=== PATIENT | female | born 1990 | race African-American/Black ===

== ENCOUNTER 2017-05-11 11:04 | Emergency (ER) | payer MEDICAID ==
[~2017-05-11] VITALS: Ht 160 cm; Wt 64.0 kg
[~2017-05-11 11:04] MED LIST: DOXY100C2; MEDR400V
[2017-05-11] MEDS ORDERED: SODIUM CHLORIDE 0.9% 1,000 ML IV ONE (14:45)
[2017-05-11] MEDS ORDERED: KETOROLAC 30MG/ML VIAL IV ONE (14:45)
[2017-05-11] MEDS ORDERED: DIPHENHYDRAMINE 50MG/ML VIAL IV ONE (14:45)
[2017-05-11] MEDS ORDERED: METOCLOPRAMIDE HCL 10MG/2ML VIAL IV ONE (14:45)
[2017-05-11 15:46] LABS: CHLORIDE 107 mEq/L (98-107)
[2017-05-11 15:51] LABS: CARBON DIOXIDE 27 mEq/L (21-32); EOSINOPHILS % 6.8 % (0.0-5.0); HEMATOCRIT. 31.4 % (36.0-48.0); HEMOGLOBIN. 10.3 g/dL (12.0-16.0); LYMPHOCYTES % 35.8 % (20.0-50.0); MEAN CORPUSCULAR HEMOGLOBIN 29.2 pg (28.0-32.0); MEAN PLATELET VOLUME 8.7 fl (7.4-10.4); MONOCYTES % 12.9 % (2.0-8.0); NEUTROPHILS % 43.5 % (40.0-76.0); PLATELET 310 x1000/uL (130-400); RED BLOOD CELL COUNT 3.53 mill/uL (4.2-5.4)
[2017-05-11 16:14] LABS: CLARITY URINE CLOUDY (CLEAR); COLOR URINE YELLOW (YELLOW); GLUCOSE URINE NEGATIVE (NEGATIVE); KETONES URINE TRACE (NEGATIVE); LEUKOCYTE ESTERASE URINE 1+ (NEGATIVE); NITRITE URINE NEGATIVE (NEGATIVE); OCCULT BLOOD URINE NEGATIVE (NEGATIVE); PROTEIN URINE TRACE (NEGATIVE); SPECIFIC GRAVITY URINE 1.026 (1.005-1.030)
[2017-05-11] MEDS ORDERED: ACETAMINOPHEN 500MG TABLET PO ONE (19:00)
[2017-05-11 19:52] VITALS: BP 106/75
== END 2017-05-11 19:57 | disposition home or self-care (01) ==
LOC: ER 14:49
DX: B34.9 Viral infection, unspecified (principal); N39.0 Urinary tract infection, site not specified; R51 Headache; R07.9 Chest pain, unspecified; F12.10 Cannabis abuse, uncomplicated
CPT/HCPCS: 36415; 71010; 80048; 81001; 81025; 85025; 93005; 96361; 96374; 96375; 99285; J1200; J1885; J2765; J7030; Z7610

== ENCOUNTER 2017-08-28 13:42 | Emergency (ER) | payer MEDICAID ==
[~2017-08-28] VITALS: Ht 160 cm; Wt 69.0 kg
[2017-08-28] MEDS ORDERED: KETOROLAC 30MG/ML VIAL IV STA (18:16)
[2017-08-28] MEDS ORDERED: SODIUM CHLORIDE 0.9% 1,000 ML IV ONE (18:16)
[2017-08-28] MEDS ORDERED: ONDANSETRON HCL 4MG/2ML VIAL IV STA (18:16)
[2017-08-28 18:32] LABS: BASOPHILS % 0.9 % (0.0-2.0); EOSINOPHILS % 0.7 % (0.0-5.0); HEMOGLOBIN. 10.2 g/dL (12.0-16.0); MEAN CORPUSCULAR HEMOGLOBIN 28.3 pg (28.0-32.0); MEAN PLATELET VOLUME 8.9 fl (7.4-10.4); MONOCYTES % 9.3 % (2.0-8.0); NEUTROPHILS % 38.1 % (40.0-76.0); PLATELET 326 x1000/uL (130-400); RED CELL DISTRIBUTION WIDTH 15.3 % (11.6-14.6)
[2017-08-28 18:40] LABS: CHLORIDE 106 mEq/L (98-107)
[2017-08-28 19:48] LABS: CARBON DIOXIDE 25 mEq/L (21-32)
[2017-08-28 20:05] VITALS: BP 123/70
[2017-08-28 20:16] LABS: CLARITY URINE CLEAR (CLEAR); COLOR URINE YELLOW (YELLOW); KETONES URINE TRACE (NEGATIVE); LEUKOCYTE ESTERASE URINE NEGATIVE (NEGATIVE); NITRITE URINE NEGATIVE (NEGATIVE); OCCULT BLOOD URINE NEGATIVE (NEGATIVE); PH URINE 5.5 (4.5-8.0); PROTEIN URINE 2+ (NEGATIVE); SPECIFIC GRAVITY URINE 1.031 (1.005-1.030); UROBILINOGEN URINE 0.2 E.U./dL (0.2-1.0)
== END 2017-08-28 21:50 | disposition home or self-care (01) ==
LOC: ER 14:43
DX: B34.9 Viral infection, unspecified (principal); F12.10 Cannabis abuse, uncomplicated
CPT/HCPCS: 36415; 71045; 80053; 81001; 81025; 85025; 87804; 96361; 96374; 96375; 99285; J1885; J2405; J7030; Z7610

== ENCOUNTER 2017-08-29 23:18 | Emergency (ER) | payer MEDICAID, OTHER ==
[~2017-08-29] VITALS: Ht 160 cm; Wt 70.0 kg
[2017-08-30] MEDS ORDERED: KETOROLAC 30MG/ML VIAL IV STA (06:24)
[2017-08-30] MEDS ORDERED: ONDANSETRON HCL 4MG/2ML VIAL IV STA (06:24)
[2017-08-30] MEDS ORDERED: SODIUM CHLORIDE 0.9% 1,000 ML IV ONE (06:24)
[2017-08-30] MEDS ORDERED: CEFTRIAXONE SODIUM 250 MG/VIAL IM ONE (06:30)
[2017-08-30] MEDS ORDERED: AZITHROMYCIN 500 MG TABLET PO ONE (06:30)
[2017-08-30 06:41] LABS: BASOPHILS % 0.6 % (0.0-2.0); EOSINOPHILS % 1.2 % (0.0-5.0); HEMATOCRIT. 27.6 % (36.0-48.0); HEMOGLOBIN. 8.9 g/dL (12.0-16.0); LYMPHOCYTES % 63.2 % (20.0-50.0); MEAN CORPUSCULAR HEMOGLOBIN 27.6 pg (28.0-32.0); MEAN CORPUSCULAR VOLUME 85.8 fL (81.0-99.0); MEAN PLATELET VOLUME 8.3 fl (7.4-10.4); MONOCYTES % 9.3 % (2.0-8.0); NEUTROPHILS % 25.7 % (40.0-76.0); PLATELET 297 x1000/uL (130-400); RED BLOOD CELL COUNT 3.22 mill/uL (4.2-5.4)
[2017-08-30 06:48] LABS: HCG SCREEN NEGATIVE
[2017-08-30 06:52] LABS: CHLORIDE 107 mEq/L (98-107)
[2017-08-30 06:58] LABS: CARBON DIOXIDE 28 mEq/L (21-32)
[2017-08-30 07:06] LABS: CLARITY URINE CLEAR (CLEAR); COLOR URINE YELLOW (YELLOW); KETONES URINE NEGATIVE (NEGATIVE); LEUKOCYTE ESTERASE URINE NEGATIVE (NEGATIVE); NITRITE URINE NEGATIVE (NEGATIVE); OCCULT BLOOD URINE 1+ (NEGATIVE); PH URINE 5.5 (4.5-8.0); PROTEIN URINE TRACE (NEGATIVE); SPECIFIC GRAVITY URINE 1.025 (1.005-1.030)
[2017-08-30 07:52] VITALS: BP 147/63
[2017-09-02 08:12] LABS: CHLAMYDIA TRACHOMATIS NAA Negative (Negative); NEISSERIA GONORRHOEAE NAA Negative (Negative)
== END 2017-08-30 09:34 | disposition home or self-care (01) ==
LOC: ER 23:18
DX: D25.9 Leiomyoma of uterus, unspecified (principal); D64.9 Anemia, unspecified; N73.9 Female pelvic inflammatory disease, unspecified; F12.10 Cannabis abuse, uncomplicated
CPT/HCPCS: 36415; 76830; 76856; 80053; 81001; 83690; 84703; 85025; 87210; 87491; 87591; 93005; 96361; 96372; 96374; 96375; 99285; J0696; J1885; J2405; Z7610; J7030

== ENCOUNTER 2017-10-10 03:18 | Emergency (ER) | payer OTHER ==
[~2017-10-10] VITALS: Ht 160 cm; Wt 71.0 kg
[2017-10-10] MEDS ORDERED: IBUPROFEN 600MG TABLET PO STA (04:53)
[2017-10-10 05:19] LABS: BASOPHILS % 1.1 % (0.0-2.0); EOSINOPHILS % 3.3 % (0.0-5.0); HEMATOCRIT. 26.7 % (36.0-48.0); HEMOGLOBIN. 8.5 g/dL (12.0-16.0); MEAN CORPUSCULAR HEMOGLOBIN 27.1 pg (28.0-32.0); MEAN PLATELET VOLUME 8.2 fl (7.4-10.4); MONOCYTES % 7.3 % (2.0-8.0); NEUTROPHILS % 37.3 % (40.0-76.0); PLATELET 378 x1000/uL (130-400); RED BLOOD CELL COUNT 3.15 mill/uL (4.2-5.4)
[2017-10-10 05:23] LABS: CLARITY URINE TURBID (CLEAR); COLOR URINE YELLOW (YELLOW); KETONES URINE NEGATIVE (NEGATIVE); LEUKOCYTE ESTERASE URINE 3+ (NEGATIVE); NITRITE URINE NEGATIVE (NEGATIVE); OCCULT BLOOD URINE NEGATIVE (NEGATIVE); PROTEIN URINE NEGATIVE (NEGATIVE); SPECIFIC GRAVITY URINE 1.018 (1.005-1.030); UROBILINOGEN URINE 0.2 E.U./dL (0.2-1.0)
[2017-10-10 05:24] LABS: HCG SCREEN NEGATIVE
[2017-10-10 05:26] LABS: CHLORIDE 107 mEq/L (98-107)
[2017-10-10 05:57] LABS: *AMPHETAMINES SCREEN URINE NEGATIVE (NEGATIVE); *BARBITURATES SCREEN URINE NEGATIVE (NEGATIVE); *BENZODIAZEPINES SCREEN URINE NEGATIVE (NEGATIVE); *COCAINE SCREEN URINE NEGATIVE (NEGATIVE); METHADONE URINE SCREEN NEGATIVE (NEGATIVE); OPIATES URINE SCREEN NEGATIVE (NEGATIVE)
[2017-10-10 05:58] LABS: PHENCYCLIDINE URINE SCREEN NEGATIVE (NEGATIVE)
[2017-10-10 06:07] LABS: CANNABINOID URINE SCREEN PRESUMTIVE POSITIVE (NEGATIVE)
[2017-10-10] MEDS ORDERED: KETOROLAC 60MG/2ML VIAL IM ONE (06:45)
[2017-10-10] MEDS ORDERED: CEFTRIAXONE SODIUM 250 MG/VIAL IM ONE (09:45)
[2017-10-10] MEDS ORDERED: LIDOCAINE HCL 1% 20ML VIAL (Pyxis) INJ MC ONE (09:45)
[2017-10-10] MEDS ORDERED: AZITHROMYCIN 500 MG TABLET PO ONE (09:45)
[2017-10-10] MEDS ORDERED: ACETAMINOPHEN 325MG TABLET PO ONE (09:45)
[2017-10-10 11:24] VITALS: BP 117/63
== END 2017-10-10 11:24 | disposition home or self-care (01) ==
LOC: ER 03:44
DX: R10.2 Pelvic and perineal pain (principal); R30.0 Dysuria; N93.8 Other specified abnormal uterine and vaginal bleeding; D25.9 Leiomyoma of uterus, unspecified; F12.10 Cannabis abuse, uncomplicated
CPT/HCPCS: 36415; 76830; 76856; 80053; 80305; 81003; 84703; 85025; 87210; 87491; 87591; 96372; 99285; J0696; J1885; J3490

== ENCOUNTER 2017-10-23 02:02 | Emergency (ER) | payer OTHER ==
[~2017-10-23] VITALS: Ht 160 cm; Wt 70.0 kg
[2017-10-23 05:30] VITALS: BP 122/80
[2017-10-23] MEDS ORDERED: KETOROLAC 60MG/2ML VIAL IM ONE (05:30)
[2017-10-23] MEDS ORDERED: PREDNISONE 20MG TABLET PO ONE (05:30)
== END 2017-10-23 06:30 | disposition home or self-care (01) ==
LOC: ER 02:02
DX: J03.90 Acute tonsillitis, unspecified (principal)
CPT/HCPCS: 96372; 99283; J1885; J7512

== ENCOUNTER 2018-05-17 10:32 | Emergency (ER) | payer MEDICAID ==
[~2018-05-17] VITALS: Ht 160 cm; Wt 68.3 kg
[2018-05-17 11:18] LABS: CLARITY URINE CLEAR (CLEAR); COLOR URINE YELLOW (YELLOW); KETONES URINE NEGATIVE (NEGATIVE); LEUKOCYTE ESTERASE URINE NEGATIVE (NEGATIVE); NITRITE URINE NEGATIVE (NEGATIVE); OCCULT BLOOD URINE NEGATIVE (NEGATIVE); PH URINE 7.5 (4.5-8.0); PROTEIN URINE NEGATIVE (NEGATIVE); SPECIFIC GRAVITY URINE 1.021 (1.005-1.030); UROBILINOGEN URINE 0.2 E.U./dL (0.2-1.0)
[2018-05-17] MEDS ORDERED: KETOROLAC 30MG/ML VIAL IV STA (11:48)
[2018-05-17] MEDS ORDERED: SODIUM CHLORIDE 0.9% 1,000 ML IV ONE (11:48)
[2018-05-17] MEDS ORDERED: DOXYCYCLINE HYCLATE 100 MG/VIAL IV ONE (12:00)
[2018-05-17] MEDS ORDERED: CEFTRIAXONE 1 G PREMIX 50 ML IV ONE (12:00)
[2018-05-17] MEDS ORDERED: DOXYCYCLINE 100MG in DEXTROSE 5% WATER 100ML IV SCH (12:15)
[2018-05-17 13:11] LABS: CHLORIDE 109 mEq/L (98-107)
[2018-05-17 13:24] LABS: BASOPHILS % 0.7 % (0.0-2.0); EOSINOPHILS % 2.8 % (0.0-5.0); HEMATOCRIT. 26.1 % (36.0-48.0); HEMOGLOBIN. 8.2 g/dL (12.0-16.0); LYMPHOCYTES % 42.2 % (20.0-50.0); MEAN CORPUSCULAR HEMOGLOBIN 24.2 pg (28.0-32.0); MEAN CORPUSCULAR VOLUME 77.1 fL (81.0-99.0); MEAN PLATELET VOLUME 8.8 fl (7.4-10.4); MONOCYTES % 7.3 % (2.0-8.0); PLATELET 296 x1000/uL (130-400); RED BLOOD CELL COUNT 3.38 mill/uL (4.2-5.4); RED CELL DISTRIBUTION WIDTH 17.9 % (11.6-14.6)
[2018-05-17 16:15] VITALS: BP 108/68
[2018-05-19 15:10] LABS: CHLAMYDIA TRACHOMATIS NAA Negative (Negative); NEISSERIA GONORRHOEAE NAA Negative (Negative)
== END 2018-05-17 16:52 | disposition home or self-care (01) ==
LOC: ER 10:32
DX: N73.9 Female pelvic inflammatory disease, unspecified (principal); D25.9 Leiomyoma of uterus, unspecified; R19.7 Diarrhea, unspecified; F12.10 Cannabis abuse, uncomplicated
CPT/HCPCS: 36415; 76856; 80053; 81003; 81025; 83690; 85025; 87210; 87491; 87591; 96365; 96366; 96368; 96375; 99285; J0696; J1885; J3490; J7030; Z7610; J7060

== ENCOUNTER 2018-07-13 21:45 | Emergency (ER) | payer MEDICAID ==
[~2018-07-13] VITALS: Ht 160 cm; Wt 67.9 kg
[2018-07-13 21:46] VITALS: BP 129/69
== END 2018-07-14 02:00 | disposition left against medical advice (07) ==
LOC: ER 21:45
DX: R06.02 Shortness of breath (principal); Z53.21 Procedure and treatment not carried out due to patient leaving prior to being seen by health care provider
CPT/HCPCS: 93005

== ENCOUNTER 2018-07-14 16:50 | Emergency (ER) | payer MEDICAID ==
[~2018-07-14] VITALS: Ht 160 cm; Wt 59.0 kg
[2018-07-14] MEDS ORDERED: CEFTRIAXONE SODIUM 250 MG/VIAL IM ONE (22:30)
[2018-07-14] MEDS ORDERED: AZITHROMYCIN 500 MG TABLET PO ONE (22:30)
[2018-07-14 23:10] LABS: CLARITY URINE CLEAR (CLEAR); COLOR URINE YELLOW (YELLOW); KETONES URINE TRACE (NEGATIVE); LEUKOCYTE ESTERASE URINE NEGATIVE (NEGATIVE); NITRITE URINE NEGATIVE (NEGATIVE); OCCULT BLOOD URINE NEGATIVE (NEGATIVE); PH URINE 6.5 (4.5-8.0); PROTEIN URINE TRACE (NEGATIVE); SPECIFIC GRAVITY URINE 1.024 (1.005-1.030)
[2018-07-14 23:39] LABS: BASOPHILS % 0.7 % (0.0-2.0); EOSINOPHILS % 2.2 % (0.0-5.0); HEMATOCRIT. 25.3 % (36.0-48.0); HEMOGLOBIN. 7.9 g/dL (12.0-16.0); LYMPHOCYTES % 26.9 % (20.0-50.0); MEAN CORPUSCULAR HEMOGLOBIN 23.1 pg (28.0-32.0); MEAN PLATELET VOLUME 8.6 fl (7.4-10.4); MONOCYTES % 10.7 % (2.0-8.0); NEUTROPHILS % 59.5 % (40.0-76.0); PLATELET 315 x1000/uL (130-400); RED BLOOD CELL COUNT 3.42 mill/uL (4.2-5.4); RED CELL DISTRIBUTION WIDTH 18.5 % (11.6-14.6)
[2018-07-14 23:44] LABS: CHLORIDE 105 mEq/L (98-107)
[2018-07-15] MEDS ORDERED: IBUPROFEN 600MG TABLET PO ONE (01:15)
[2018-07-15 02:44] VITALS: BP 128/80
[2018-07-18 04:17] LABS: CHLAMYDIA TRACHOMATIS NAA Negative (Negative); NEISSERIA GONORRHOEAE NAA Negative (Negative)
== END 2018-07-15 02:44 | disposition home or self-care (01) ==
LOC: ER 16:50
DX: D25.9 Leiomyoma of uterus, unspecified (principal); R07.89 Other chest pain; R05 Cough
CPT/HCPCS: 36415; 71045; 76830; 76856; 80053; 81003; 81025; 85025; 87210; 87491; 87591; 87804; 93005; 96372; 99284; J0696

== ENCOUNTER 2019-03-11 22:44 | Emergency (ER) | payer MEDICAID ==
[~2019-03-11] VITALS: Ht 172.7 cm; Wt 72.0 kg
[2019-03-12] MEDS ORDERED: SODIUM CHLORIDE 0.9% 1,000 ML IV ONE (01:35)
[2019-03-12] MEDS ORDERED: ONDANSETRON HCL 4MG/2ML INJ IV ONE (01:45)
[2019-03-12 01:50] LABS: EOSINOPHILS % 2.7 % (0.0-5.0); HEMATOCRIT. 32.8 % (36.0-48.0); HEMOGLOBIN. 10.8 g/dL (12.0-16.0); LYMPHOCYTES % 49.6 % (20.0-50.0); MEAN CORPUSCULAR HEMOGLOBIN 31.8 pg (28.0-32.0); MEAN CORPUSCULAR VOLUME 96.3 fL (81.0-99.0); MEAN PLATELET VOLUME 8.5 fl (7.4-10.4); NEUTROPHILS % 37.7 % (40.0-76.0); PLATELET 314 x1000/uL (130-400); RED BLOOD CELL COUNT 3.41 mill/uL (4.2-5.4); RED CELL DISTRIBUTION WIDTH 14.2 % (11.6-14.6)
[2019-03-12 01:53] LABS: CHLORIDE 106 mEq/L (98-107)
[2019-03-12 02:04] LABS: B-HCG QUANTITATIVE < 1 mIU/mL (<3)
[2019-03-12] MEDS ORDERED: KETOROLAC 15MG/ML VIAL IV ONE ×2 (02:15→06:30)
[2019-03-12 02:29] LABS: CLARITY URINE CLEAR (CLEAR); COLOR URINE YELLOW (YELLOW); KETONES URINE TRACE (NEGATIVE); LEUKOCYTE ESTERASE URINE 1+ (NEGATIVE); NITRITE URINE NEGATIVE (NEGATIVE); OCCULT BLOOD URINE NEGATIVE (NEGATIVE); PH URINE 5.5 (4.5-8.0); PROTEIN URINE NEGATIVE (NEGATIVE); SPECIFIC GRAVITY URINE 1.029 (1.005-1.030)
[2019-03-12] MEDS ORDERED: KETOROLAC 15MG/ML VIAL IM ONE (06:00)
[2019-03-12] MEDS ORDERED: DIVALPROEX SODIUM 250MG ER TABLET PO ONE (06:00)
[2019-03-12] MEDS ORDERED: PHENYTOIN SODIUM EXTENDED 100MG CAPSULE PO ONE (06:00)
[2019-03-12] MEDS ORDERED: LEVETIRACETAM 500MG TABLET PO ONE (06:00)
[2019-03-12] MEDS ORDERED: CEFTRIAXONE SODIUM 250 MG/VIAL IV ONE (06:30)
[2019-03-12] MEDS ORDERED: CEFTRIAXONE SODIUM 250 MG/VIAL IM ONE (06:30)
[2019-03-12] MEDS ORDERED: AZITHROMYCIN 500 MG TABLET PO ONE (06:30)
[2019-03-12 07:21] VITALS: BP 110/68
== END 2019-03-12 07:26 | disposition home or self-care (01) ==
LOC: ER 22:44
DX: D25.9 Leiomyoma of uterus, unspecified (principal); R11.2 Nausea with vomiting, unspecified; D64.9 Anemia, unspecified; F12.10 Cannabis abuse, uncomplicated; Z79.899 Other long term (current) drug therapy
CPT/HCPCS: 36415; 76830; 76856; 80053; 81003; 81025; 84702; 85025; 87491; 87591; 96361; 96372; 96374; 96376; 99284; J0696; J1885; J2405; J7030; Z7610

== ENCOUNTER 2019-08-12 17:56 | Emergency (ER) | payer MEDICAID ==
[~2019-08-12] VITALS: Ht 160 cm; Wt 73.0 kg
[2019-08-13] MEDS: KETOROLAC 30MG/ML VIAL IM STA (07:00)
[2019-08-13 07:01] LABS: EOSINOPHILS % 3.3 % (0.0-5.0); HEMATOCRIT. 30.4 % (36.0-48.0); HEMOGLOBIN. 9.6 g/dL (12.0-16.0); LYMPHOCYTES % 44.4 % (20.0-50.0); MEAN CORPUSCULAR HEMOGLOBIN 25.3 pg (28.0-32.0); MEAN CORPUSCULAR VOLUME 80.2 fL (81.0-99.0); MONOCYTES % 6.5 % (2.0-8.0); NEUTROPHILS % 44.8 % (40.0-76.0); PLATELET 510 x1000/uL (130-400); RED BLOOD CELL COUNT 3.79 mill/uL (4.2-5.4); RED CELL DISTRIBUTION WIDTH 15.9 % (11.6-14.6)
[2019-08-13 07:03] LABS: CLARITY URINE CLEAR (CLEAR); COLOR URINE YELLOW (YELLOW); KETONES URINE NEGATIVE (NEGATIVE); LEUKOCYTE ESTERASE URINE NEGATIVE (NEGATIVE); NITRITE URINE NEGATIVE (NEGATIVE); OCCULT BLOOD URINE TRACE (NEGATIVE); PROTEIN URINE NEGATIVE (NEGATIVE); SPECIFIC GRAVITY URINE 1.022 (1.005-1.030); UROBILINOGEN URINE 0.2 E.U./dL (0.2-1.0)
[2019-08-13] MEDS: CEFTRIAXONE SODIUM 250 MG/VIAL IM ONE (07:25)
[2019-08-13] MEDS: AZITHROMYCIN 500 MG TABLET PO ONE (07:25)
[2019-08-13] MEDS: HYDROCODONE/ACETAMINOPHEN 5/325MG TABLET PO ONE (07:45)
[2019-08-13 09:25] VITALS: BP 123/63
[2019-08-13 09:32] LABS: CHLORIDE 108 mEq/L (98-107)
== END 2019-08-13 09:25 | disposition home or self-care (01) ==
LOC: ER 17:56
DX: D64.9 Anemia, unspecified (principal); N76.0 Acute vaginitis; R10.2 Pelvic and perineal pain; R30.0 Dysuria; R11.0 Nausea; F12.10 Cannabis abuse, uncomplicated
CPT/HCPCS: 36415; 71045; 76830; 76856; 80053; 81003; 81025; 85025; 87491; 87591; 96372; 99284; J0696; J1885; 87210

== ENCOUNTER 2019-09-02 12:53 | Emergency (ER) | payer MEDICAID ==
[~2019-09-02] VITALS: Ht 160 cm; Wt 74.0 kg
[2019-09-02] MEDS ORDERED: MORPHINE SULFATE 4 MG/ML CPJ (NOT FOR IM USE) IV STA (16:16)
[2019-09-02] MEDS ORDERED: SODIUM CHLORIDE 0.9% 1,000 ML IV ONE (16:16)
[2019-09-02] MEDS ORDERED: ONDANSETRON HCL 4MG/2ML INJ IV STA (16:16)
[2019-09-02 16:38] LABS: CLARITY URINE CLEAR (CLEAR); COLOR URINE YELLOW (YELLOW); KETONES URINE NEGATIVE (NEGATIVE); LEUKOCYTE ESTERASE URINE NEGATIVE (NEGATIVE); NITRITE URINE NEGATIVE (NEGATIVE); OCCULT BLOOD URINE 2+ (NEGATIVE); PH URINE 7.5 (4.5-8.0); PROTEIN URINE NEGATIVE (NEGATIVE); SPECIFIC GRAVITY URINE 1.024 (1.005-1.030); UROBILINOGEN URINE 0.2 E.U./dL (0.2-1.0)
[2019-09-02 16:39] LABS: BASOPHILS % 1.4 % (0.0-2.0); EOSINOPHILS % 4.6 % (0.0-5.0); HEMATOCRIT. 28.1 % (36.0-48.0); HEMOGLOBIN. 9.2 g/dL (12.0-16.0); MEAN CORPUSCULAR HEMOGLOBIN 25.4 pg (28.0-32.0); MEAN CORPUSCULAR VOLUME 77.8 fL (81.0-99.0); MEAN PLATELET VOLUME 8.2 fl (7.4-10.4); MONOCYTES % 7.5 % (2.0-8.0); NEUTROPHILS % 41.5 % (40.0-76.0); PLATELET 436 x1000/uL (130-400); RED BLOOD CELL COUNT 3.61 mill/uL (4.2-5.4); RED CELL DISTRIBUTION WIDTH 16.6 % (11.6-14.6)
[2019-09-02 16:43] LABS: CHLORIDE 108 mEq/L (98-107)
[2019-09-02] MEDS ORDERED: METOCLOPRAMIDE HCL 10MG/2ML VIAL IV ONE (18:00)
[2019-09-02] MEDS ORDERED: KETOROLAC 15MG/ML VIAL IV ONE (18:30)
[2019-09-02] MEDS ORDERED: AZITHROMYCIN 500 MG TABLET PO STA (18:56)
[2019-09-02] MEDS ORDERED: CEFTRIAXONE SODIUM 250 MG/VIAL IM ONE (19:00)
[2019-09-02] MEDS ORDERED: IOHEXOL-300 100 ML BOTTLE ONE (19:27)
[2019-09-02 20:16] VITALS: BP 110/68
== END 2019-09-02 20:16 | disposition home or self-care (01) ==
LOC: ER 12:53
DX: R10.0 Acute abdomen (principal); N89.8 Other specified noninflammatory disorders of vagina
CPT/HCPCS: 36415; 74177; 80053; 81003; 81025; 83690; 85025; 87210; 96361; 96372; 96374; 96375; 99284; J0696; J1885; J2270; J2405; J2765; J7030; Q9967

== ENCOUNTER 2020-01-29 16:30 | Emergency (ER) | payer SELFPAY ==
[~2020-01-29] VITALS: Ht 165.1 cm; Wt 70.0 kg
[2020-01-29] MEDS ORDERED: IBUPROFEN 600MG TABLET PO ONE (17:00)
[2020-01-29] MEDS ORDERED: TETANUS, DIPHTHERIA, PERTUSSIS VAC/PF 0.5ML (>7YR OLD) IM ONE (17:00)
[2020-01-29] MEDS ORDERED: BACITRACIN ZINC OINT UDPKT TOP ONE (17:00)
[2020-01-29 17:14] VITALS: BP 110/58
== END 2020-01-29 17:15 | disposition home or self-care (01) ==
LOC: ER 16:30
DX: S61.211A Laceration without foreign body of left index finger without damage to nail, initial encounter (principal); W26.8XXA Contact with other sharp object(s), not elsewhere classified, initial encounter; Y93.89 Activity, other specified; Y92.89 Other specified places as the place of occurrence of the external cause; Z23 Encounter for immunization
CPT/HCPCS: 90471; 90715; 99283

== ENCOUNTER 2020-02-01 12:17 | Emergency (ER) | payer MEDICAID ==
[~2020-02-01] VITALS: Ht 160 cm; Wt 82.0 kg
[2020-02-01] MEDS ORDERED: SODIUM CHLORIDE 0.9% 1,000 ML IV ONE (13:07)
[2020-02-01] MEDS ORDERED: ONDANSETRON HCL 4MG/2ML INJ IV STA (13:07)
[2020-02-01] MEDS ORDERED: CEFTRIAXONE SODIUM 250 MG/VIAL IM ONE (13:15)
[2020-02-01] MEDS ORDERED: AZITHROMYCIN 500 MG TABLET PO ONE (13:15)
[2020-02-01 13:41] LABS: BASOPHILS % 1.6 % (0.0-2.0); EOSINOPHILS % 3.6 % (0.0-5.0); LYMPHOCYTES % 41.3 % (20.0-50.0); MEAN CORPUSCULAR HEMOGLOBIN 20.8 pg (28.0-32.0); MEAN PLATELET VOLUME 8.1 fl (7.4-10.4); MONOCYTES % 7.7 % (2.0-8.0); NEUTROPHILS % 45.8 % (40.0-76.0); PLATELET 532 x1000/uL (130-400); RED BLOOD CELL COUNT 3.26 mill/uL (4.2-5.4); RED CELL DISTRIBUTION WIDTH 18.8 % (11.6-14.6)
[2020-02-01 13:42] LABS: CHLORIDE 110 mEq/L (98-107)
[2020-02-01 13:51] LABS: HEMATOCRIT. 22.5 % (36.0-48.0); HEMOGLOBIN. 6.8 g/dL (12.0-16.0)
[2020-02-01 14:11] LABS: PLATELET ESTIMATE INCREASED
[2020-02-01 14:17] LABS: CLARITY URINE CLEAR (CLEAR); COLOR URINE YELLOW (YELLOW); KETONES URINE NEGATIVE (NEGATIVE); LEUKOCYTE ESTERASE URINE NEGATIVE (NEGATIVE); NITRITE URINE NEGATIVE (NEGATIVE); OCCULT BLOOD URINE NEGATIVE (NEGATIVE); PH URINE 6.5 (4.5-8.0); PROTEIN URINE NEGATIVE (NEGATIVE); SPECIFIC GRAVITY URINE 1.024 (1.005-1.030)
[2020-02-01] MEDS ORDERED: EPOETIN ALFA 10000UNITS/ML VIAL SUBCUT ONE (15:00)
[2020-02-01 15:53] VITALS: BP 120/80
[2020-02-04 04:07] LABS: NEISSERIA GONORRHOEAE NAA Negative (Negative)
== END 2020-02-01 16:02 | disposition left against medical advice (07) ==
LOC: ER 12:17
DX: D64.9 Anemia, unspecified (principal); R30.0 Dysuria; R11.0 Nausea; Z79.899 Other long term (current) drug therapy
CPT/HCPCS: 36415; 80053; 81003; 81025; 85025; 86850; 86900; 86901; 86920; 87491; 87591; 96361; 96372; 96374; 99284; J0696; J0885; J2405; J7030

== ENCOUNTER 2020-04-22 22:46 | Emergency (ER) | payer MEDICAID, OTHER ==
[~2020-04-22] VITALS: Ht 160 cm; Wt 76.3 kg
[2020-04-23 02:15] LABS: CLARITY URINE CLOUDY (CLEAR); COLOR URINE YELLOW (YELLOW); KETONES URINE NEGATIVE (NEGATIVE); LEUKOCYTE ESTERASE URINE NEGATIVE (NEGATIVE); NITRITE URINE NEGATIVE (NEGATIVE); OCCULT BLOOD URINE NEGATIVE (NEGATIVE); PH URINE 5.5 (4.5-8.0); PROTEIN URINE TRACE (NEGATIVE); SPECIFIC GRAVITY URINE 1.032 (1.005-1.030); UROBILINOGEN URINE 0.2 E.U./dL (0.2-1.0)
[2020-04-23] MEDS ORDERED: LIDOCAINE HCL 1% 20ML VIAL (Pyxis) INJ INFIL ONE (02:30)
[2020-04-23] MEDS ORDERED: CEFTRIAXONE SODIUM 250 MG/VIAL IM ONE (02:30)
[2020-04-23] MEDS ORDERED: AZITHROMYCIN 500 MG TABLET PO ONE (02:30)
[2020-04-23 02:35] VITALS: BP 130/66
[2020-04-23] MEDS ORDERED: IBUPROFEN 600MG TABLET PO ONE (03:45)
== END 2020-04-23 03:56 | disposition home or self-care (01) ==
LOC: ER 22:46
DX: A64 Unspecified sexually transmitted disease (principal)
CPT/HCPCS: 81003; 81025; 87210; 96372; 99283; J0696; J3490

== ENCOUNTER 2020-11-26 11:47 | Emergency (ER) | payer MEDICAID ==
[~2020-11-26] VITALS: Ht 160 cm; Wt 76.0 kg
[2020-11-26] MEDS ORDERED: LIDOCAINE HCL 1% 20ML VIAL (Pyxis) INJ INFIL ONE (12:15)
[2020-11-26] MEDS ORDERED: CEFTRIAXONE SODIUM 500 MG/VIAL IM ONE (12:15)
[2020-11-26] MEDS ORDERED: DOXYCYCLINE HYCLATE 100MG CAPSULE PO ONE (12:15)
[2020-11-26 12:43] LABS: CLARITY URINE CLEAR (CLEAR); COLOR URINE YELLOW (YELLOW); KETONES URINE NEGATIVE (NEGATIVE); LEUKOCYTE ESTERASE URINE NEGATIVE (NEGATIVE); NITRITE URINE NEGATIVE (NEGATIVE); OCCULT BLOOD URINE NEGATIVE (NEGATIVE); PROTEIN URINE NEGATIVE (NEGATIVE); SPECIFIC GRAVITY URINE 1.022 (1.005-1.030); UROBILINOGEN URINE 0.2 E.U./dL (0.2-1.0)
[2020-11-26 13:26] LABS: BASOPHILS % 1.5 % (0.0-2.0); EOSINOPHILS % 4.6 % (0.0-5.0); HEMATOCRIT. 29.5 % (36.0-48.0); HEMOGLOBIN. 9.4 g/dL (12.0-16.0); LYMPHOCYTES % 44.3 % (20.0-50.0); MEAN CORPUSCULAR VOLUME 81.7 fL (81.0-99.0); MEAN PLATELET VOLUME 8.1 fl (7.4-10.4); MONOCYTES % 7.6 % (2.0-8.0); PLATELET 485 x1000/uL (130-400); RED BLOOD CELL COUNT 3.61 mill/uL (4.2-5.4); RED CELL DISTRIBUTION WIDTH 20.2 % (11.6-14.6)
[2020-11-26 13:30] LABS: CHLORIDE 109 mEq/L (98-107)
[2020-11-26] MEDS ORDERED: KETOROLAC 15MG/ML VIAL IV ONE (15:30)
[2020-11-26] MEDS ORDERED: ONDANSETRON HCL 4MG/2ML INJ IV ONE (15:30)
[2020-11-26] MEDS ORDERED: ONDA4TAB5 MT (15:53)
[2020-11-26] MEDS ORDERED: METR-167 MT (15:53)
[2020-11-26] MEDS ORDERED: DOXY100T2 MT (15:53)
[2020-11-26 16:00] VITALS: BP 122/68
[2020-11-26] MEDS ORDERED: IBUP-2029 MT (16:10)
[2020-11-26] MEDS ORDERED: DIF15 MT (16:10)
[2020-11-29 04:12] LABS: NEISSERIA GONORRHOEAE NAA Negative (Negative)
== END 2020-11-26 16:44 | disposition home or self-care (01) ==
LOC: ER 12:19
DX: R10.2 Pelvic and perineal pain (principal); N76.0 Acute vaginitis; B96.89 Other specified bacterial agents as the cause of diseases classified elsewhere; D25.9 Leiomyoma of uterus, unspecified; Z79.899 Other long term (current) drug therapy
CPT/HCPCS: 36415; 71045; 76856; 80048; 81003; 81025; 84484; 85025; 87210; 87491; 87591; 93005; 96372; 96374; 96375; 99285; J0696; J1885; J2405; J3490

== ENCOUNTER 2021-06-06 00:57 | Emergency (ER) | payer MEDICAID ==
[~2021-06-06] VITALS: Ht 160 cm; Wt 74.0 kg
[~2021-06-06 00:57] MED LIST changes: +DIF15 MT; -DOXY100C2; +DOXY100C5; +DOXY100T2 MT; +IBUP-2029 MT; +METR-167 MT; +ONDA4TAB5 MT
[2021-06-06 02:31] LABS: CLARITY URINE CLEAR (CLEAR); COLOR URINE YELLOW (YELLOW); KETONES URINE NEGATIVE (NEGATIVE); LEUKOCYTE ESTERASE URINE NEGATIVE (NEGATIVE); NITRITE URINE NEGATIVE (NEGATIVE); OCCULT BLOOD URINE NEGATIVE (NEGATIVE); PH URINE 6.5 (4.5-8.0); PROTEIN URINE NEGATIVE (NEGATIVE); SPECIFIC GRAVITY URINE 1.025 (1.005-1.030)
[2021-06-06] MEDS ORDERED: IBUPROFEN 600MG TABLET PO ONE (03:30)
[2021-06-06 03:31] VITALS: BP 128/85
[2021-06-06] MEDS ORDERED: IBUP-2028 MT (03:55)
[2021-06-06] MEDS ORDERED: METR500T MT (03:55)
[2021-06-06] MEDS ORDERED: ONDA4TAB11 PO (04:00)
== END 2021-06-06 04:31 | disposition home or self-care (01) ==
LOC: ER 00:57
DX: R07.89 Other chest pain (principal); N76.0 Acute vaginitis
CPT/HCPCS: 71045; 81003; 81025; 87210; 93005; 99285

== ENCOUNTER 2021-06-27 23:41 | Emergency (ER) | payer MEDICAID ==
[~2021-06-27] VITALS: Ht 160 cm; Wt 73.0 kg
[~2021-06-27 23:41] MED LIST changes: +IBUP-2028 MT; +METR500T MT; +ONDA4TAB11 PO
[2021-06-28] MEDS ORDERED: ONDANSETRON HCL 4MG/2ML INJ IM STA (00:40)
[2021-06-28] MEDS ORDERED: KETOROLAC 60MG/2ML VIAL IM STA (00:40)
[2021-06-28 01:07] LABS: BASOPHILS % 1.1 % (0.0-2.0); EOSINOPHILS % 0.3 % (0.0-5.0); HEMATOCRIT. 31.9 % (36.0-48.0); HEMOGLOBIN. 10.1 g/dL (12.0-16.0); LYMPHOCYTES % 40.4 % (20.0-50.0); MEAN CORPUSCULAR HEMOGLOBIN 25.1 pg (28.0-32.0); MEAN CORPUSCULAR VOLUME 79.2 fL (81.0-99.0); MEAN PLATELET VOLUME 7.7 fl (7.4-10.4); MONOCYTES % 9.6 % (2.0-8.0); NEUTROPHILS % 48.6 % (40.0-76.0); PLATELET 442 x1000/uL (130-400); RED BLOOD CELL COUNT 4.03 mill/uL (4.2-5.4); RED CELL DISTRIBUTION WIDTH 20.4 % (11.6-14.6)
[2021-06-28 01:27] LABS: CLARITY URINE CLEAR (CLEAR); COLOR URINE YELLOW (YELLOW); KETONES URINE NEGATIVE (NEGATIVE); LEUKOCYTE ESTERASE URINE NEGATIVE (NEGATIVE); NITRITE URINE NEGATIVE (NEGATIVE); OCCULT BLOOD URINE TRACE (NEGATIVE); PROTEIN URINE 1+ (NEGATIVE); SPECIFIC GRAVITY URINE 1.018 (1.005-1.030)
[2021-06-28 01:28] LABS: CHLORIDE 107 mEq/L (98-107)
[2021-06-28] MEDS ORDERED: NAPR-681 PO (01:54)
[2021-06-28] MEDS ORDERED: ALBU18HF2 IH (01:54)
[2021-06-28] MEDS ORDERED: ONDA4TAB5 PO (01:54)
[2021-06-28 02:15] VITALS: BP 110/70
== END 2021-06-28 02:25 | disposition home or self-care (01) ==
LOC: ER 23:41
DX: U07.1 COVID-19 (principal); J06.9 Acute upper respiratory infection, unspecified; Z79.899 Other long term (current) drug therapy
CPT/HCPCS: 36415; 71045; 80048; 81003; 85025; 87804; 93005; 96372; 99285; C9803; J1885; J2405; U0003; U0005

== ENCOUNTER 2021-07-05 21:22 | Emergency (ER) | payer MEDICAID ==
[~2021-07-05] VITALS: Ht 160 cm; Wt 71.0 kg
[~2021-07-05 21:22] MED LIST changes: +ALBU18HF2 IH; +NAPR-681 PO; +ONDA4TAB5 PO
[2021-07-06 00:10] LABS: BASOPHILS % 0.6 % (0.0-2.0); HEMATOCRIT. 33.6 % (36.0-48.0); HEMOGLOBIN. 10.7 g/dL (12.0-16.0); LYMPHOCYTES % 40.2 % (20.0-50.0); MEAN CORPUSCULAR HEMOGLOBIN 25.2 pg (28.0-32.0); MEAN PLATELET VOLUME 9.1 fl (7.4-10.4); MONOCYTES % 10.8 % (2.0-8.0); NEUTROPHILS % 45.4 % (40.0-76.0); PLATELET 303 x1000/uL (130-400); RED BLOOD CELL COUNT 4.26 mill/uL (4.2-5.4); RED CELL DISTRIBUTION WIDTH 19.3 % (11.6-14.6)
[2021-07-06 00:19] LABS: CHLORIDE 108 mEq/L (98-107)
[2021-07-06 01:33] LABS: HCG SCREEN NEGATIVE
[2021-07-06] MEDS: ACETAMINOPHEN 325MG TABLET PO ONE (01:36)
[2021-07-06] MEDS: ACETAMINOPHEN 160MG/5ML UDC PO ONE (02:19)
[2021-07-06] MEDS ORDERED: IOHEXOL-300 100 ML BOTTLE ONE (02:19)
[2021-07-06 04:00] VITALS: BP 101/64
[2021-07-06] MEDS ORDERED: DOXY100T2 MT (04:00)
[2021-07-06] MEDS: CEFTRIAXONE SODIUM 500 MG/VIAL IM ONE (04:15)
[2021-07-06 05:32] LABS: CLARITY URINE CLEAR (CLEAR); COLOR URINE YELLOW (YELLOW); KETONES URINE NEGATIVE (NEGATIVE); LEUKOCYTE ESTERASE URINE NEGATIVE (NEGATIVE); NITRITE URINE NEGATIVE (NEGATIVE); OCCULT BLOOD URINE NEGATIVE (NEGATIVE); PH URINE 5.5 (4.5-8.0); PROTEIN URINE 3+ (NEGATIVE); SPECIFIC GRAVITY URINE 1.023 (1.005-1.030); UROBILINOGEN URINE 0.2 E.U./dL (0.2-1.0)
[2021-07-08 04:09] LABS: NEISSERIA GONORRHOEAE NAA Negative (Negative)
== END 2021-07-06 04:25 | disposition home or self-care (01) ==
LOC: ER 21:22
DX: D25.9 Leiomyoma of uterus, unspecified (principal); F12.10 Cannabis abuse, uncomplicated; Z79.899 Other long term (current) drug therapy
CPT/HCPCS: 36415; 71045; 74177; 76856; 80053; 81003; 81025; 84484; 84703; 85025; 87040; 87210; 87491; 87591; 93005; 96372; 99285; J0696; Q9967

== ENCOUNTER 2021-07-11 16:01 | Emergency (ER) | payer MEDICAID ==
[~2021-07-11] VITALS: Ht 160 cm; Wt 71.5 kg
[2021-07-11 17:05] LABS: BASOPHILS % 1.1 % (0.0-2.0); EOSINOPHILS % 1.9 % (0.0-5.0); HEMATOCRIT. 30.1 % (36.0-48.0); HEMOGLOBIN. 9.3 g/dL (12.0-16.0); LYMPHOCYTES % 28.1 % (20.0-50.0); MEAN CORPUSCULAR HEMOGLOBIN 24.9 pg (28.0-32.0); MONOCYTES % 12.3 % (2.0-8.0); NEUTROPHILS % 56.6 % (40.0-76.0); PLATELET 455 x1000/uL (130-400); RED BLOOD CELL COUNT 3.72 mill/uL (4.2-5.4); RED CELL DISTRIBUTION WIDTH 19.7 % (11.6-14.6)
[2021-07-11 17:09] LABS: CHLORIDE 108 mEq/L (98-107)
[2021-07-11] MEDS ORDERED: KETOROLAC 30MG/ML VIAL IV ONE (22:15)
[2021-07-12 00:15] LABS: CLARITY URINE CLEAR (CLEAR); COLOR URINE DARK YELLOW (YELLOW); KETONES URINE TRACE (NEGATIVE); LEUKOCYTE ESTERASE URINE TRACE (NEGATIVE); NITRITE URINE NEGATIVE (NEGATIVE); OCCULT BLOOD URINE 2+ (NEGATIVE); PROTEIN URINE 2+ (NEGATIVE); SPECIFIC GRAVITY URINE 1.029 (1.005-1.030)
[2021-07-12] MEDS ORDERED: HYDROCODONE/APAP 7.5/325MG 1 TAB TABLET PO ONE (00:45)
[2021-07-12 02:17] VITALS: BP 116/39
[2021-07-12] MEDS ORDERED: IBUP-2030 MT (05:57)
[2021-07-12] MEDS ORDERED: MORP15TA67 MT (05:58)
[2021-07-12] MEDS ORDERED: FLUC150T5 MT (06:00)
== END 2021-07-12 06:16 | disposition home or self-care (01) ==
LOC: ER 16:01
DX: D25.9 Leiomyoma of uterus, unspecified (principal)
CPT/HCPCS: 36415; 76830; 76856; 80048; 81003; 81025; 85025; 86850; 86900; 86901; 96374; 99284; J1885; Z7610

== ENCOUNTER 2022-01-22 23:33 | Emergency (ER) | payer MEDICAID ==
[~2022-01-22] VITALS: Ht 160 cm; Wt 88.2 kg
[~2022-01-22 23:33] MED LIST changes: +FLUC150T46 MT; +IBUP-2030 MT; +MORP15TA67 MT
[2022-01-23] MEDS ORDERED: SODIUM CHLORIDE 0.9% 1,000 ML IV ONE (00:45)
[2022-01-23 01:20] LABS: BASOPHILS % 1.2 % (0.0-2.0); EOSINOPHILS % 4.7 % (0.0-5.0); HEMATOCRIT. 33.3 % (36.0-48.0); HEMOGLOBIN. 10.8 g/dL (12.0-16.0); LYMPHOCYTES % 32.6 % (20.0-50.0); MEAN CORPUSCULAR VOLUME 89.6 fL (81.0-99.0); MEAN PLATELET VOLUME 8.4 fl (7.4-10.4); NEUTROPHILS % 53.5 % (40.0-76.0); PLATELET 314 x1000/uL (130-400); RED BLOOD CELL COUNT 3.71 mill/uL (4.2-5.4); RED CELL DISTRIBUTION WIDTH 17.7 % (11.6-14.6)
[2022-01-23 01:23] LABS: CLARITY URINE CLEAR (CLEAR); COLOR URINE YELLOW (YELLOW); KETONES URINE TRACE (NEGATIVE); LEUKOCYTE ESTERASE URINE NEGATIVE (NEGATIVE); NITRITE URINE NEGATIVE (NEGATIVE); OCCULT BLOOD URINE NEGATIVE (NEGATIVE); PH URINE 6.5 (4.5-8.0); PROTEIN URINE NEGATIVE (NEGATIVE); SPECIFIC GRAVITY URINE 1.027 (1.005-1.030); UROBILINOGEN URINE 0.2 E.U./dL (0.2-1.0)
[2022-01-23 01:34] LABS: *AMPHETAMINES SCREEN URINE NEGATIVE (NEGATIVE); *BARBITURATES SCREEN URINE NEGATIVE (NEGATIVE); *BENZODIAZEPINES SCREEN URINE NEGATIVE (NEGATIVE); *COCAINE SCREEN URINE NEGATIVE (NEGATIVE); METHADONE URINE SCREEN NEGATIVE (NEGATIVE); OPIATES URINE SCREEN NEGATIVE (NEGATIVE); PHENCYCLIDINE URINE SCREEN NEGATIVE (NEGATIVE)
[2022-01-23 01:36] LABS: HCG SCREEN NEGATIVE
[2022-01-23 01:40] LABS: CANNABINOID URINE SCREEN PRESUMTIVE POSITIVE (NEGATIVE)
[2022-01-23 01:52] LABS: CHLORIDE 110 mEq/L (98-107)
[2022-01-23 02:04] LABS: ETHANOL BLOOD < 10 mg/dL
[2022-01-23] MEDS ORDERED: KETOROLAC 30MG/ML VIAL IV SCH (02:30)
[2022-01-23 05:45] VITALS: BP 105/59
[2022-01-23] MEDS ORDERED: IBUP-2029 MT (05:45)
[2022-01-23] MEDS ORDERED: HYDROCODONE/ACETAMINOPHEN 10/325MG TABLET PO ONE (05:45)
== END 2022-01-23 06:03 | disposition home or self-care (01) ==
LOC: ER 23:33
DX: D25.9 Leiomyoma of uterus, unspecified (principal); R07.89 Other chest pain; F12.90 Cannabis use, unspecified, uncomplicated; R03.0 Elevated blood-pressure reading, without diagnosis of hypertension
CPT/HCPCS: 36415; 71045; 74176; 80053; 80305; 80320; 81003; 83690; 83880; 84484; 84703; 85025; 93005; 96374; 99285; J1885; J7030; G0480

== ENCOUNTER 2023-08-01 22:27 | Emergency (ER) | payer MEDICAID ==
[~2023-08-01] VITALS: Ht 157.5 cm; Wt 81.6 kg
[2023-08-01 22:35] VITALS: BP 155/93; PULSE 110; RESP 16; TEMP 98.6; O2SAT 99
[2023-08-02] MEDS ORDERED: CIPR2.5D20 LEFTEYE (21:09)
[2023-08-02] MEDS ORDERED: KETO5DRO73 EACHEYE (21:09)
[2023-08-02] MEDS ORDERED: NAPR-681 PO (21:09)
== END 2023-08-02 04:00 | disposition left against medical advice (07) ==
LOC: ER 22:27
DX: Z53.21 Procedure and treatment not carried out due to patient leaving prior to being seen by health care provider (principal)
CPT/HCPCS: 99281

== ENCOUNTER 2023-08-02 14:42 | Emergency (ER) | payer MEDICAID ==
[~2023-08-02] VITALS: Ht 160 cm; Wt 81.0 kg
[2023-08-02 15:18] VITALS: TEMP 98.2; O2SAT 100
[2023-08-02] MEDS ORDERED: IBUPROFEN 600MG TABLET PO STA (17:47)
[2023-08-02] MEDS ORDERED: FLUORESCEIN SODIUM 1MG/STRIP LEFTEYE ONE (18:45)
[2023-08-02] MEDS ORDERED: TETRACAINE 0.5% OPHTH DROPS 4ML LEFTEYE ONE (18:45)
[2023-08-02 20:38] VITALS: BP 139/84; PULSE 98; RESP 16
[2023-08-02] MEDS ORDERED: TETRACAINE 0.5% OPHTH DROPS 4ML LEFTEYE NR (20:45)
[2023-08-02] MEDS ORDERED: IBUPROFEN 600MG TABLET PO NR (20:45)
[2023-08-02] MEDS ORDERED: FLUORESCEIN SODIUM 1MG/STRIP LEFTEYE NR (20:45)
[2023-08-02] MEDS ORDERED: NAPR-681 PO (21:09)
[2023-08-02] MEDS ORDERED: KETO5DRO73 EACHEYE (21:09)
[2023-08-02] MEDS ORDERED: CIPR2.5D20 LEFTEYE (21:09)
== END 2023-08-02 21:59 | disposition home or self-care (01) ==
LOC: ER 14:42
DX: H10.212 Acute toxic conjunctivitis, left eye (principal); F12.10 Cannabis abuse, uncomplicated; Z79.899 Other long term (current) drug therapy
CPT/HCPCS: 99283

== ENCOUNTER 2025-06-01 23:37 | Emergency (ER) | payer MEDICAID ==
[~2025-06-01] VITALS: Ht 160 cm; Wt 87.0 kg
[~2025-06-01 23:37] MED LIST changes: -DIF15 MT; -DOXY100C5; -DOXY100T2 MT; -FLUC150T46 MT; -IBUP-2028 MT; -IBUP-2029 MT; -IBUP-2030 MT; -MEDR400V; -METR-167 MT; -METR500T MT; -MORP15TA67 MT; -NAPR-681 PO; -ONDA4TAB11 PO; -ONDA4TAB5 MT; -ONDA4TAB5 PO
[2025-06-01 23:49] VITALS: O2SAT 100
[2025-06-02] MEDS: KETOROLAC 30MG/ML VIAL IM ONE (00:44)
[2025-06-02 00:53] LABS: CLARITY URINE CLEAR (CLEAR); COLOR URINE YELLOW (YELLOW); GLUCOSE URINE NEGATIVE (NEGATIVE); KETONES URINE TRACE (NEGATIVE); LEUKOCYTE ESTERASE URINE NEGATIVE (NEGATIVE); NITRITE URINE NEGATIVE (NEGATIVE); OCCULT BLOOD URINE NEGATIVE (NEGATIVE); PH URINE 6.0 (4.5-8.0); PROTEIN URINE TRACE (NEGATIVE); SPECIFIC GRAVITY URINE 1.029 (1.005-1.030); UROBILINOGEN URINE 1.0 E.U./dL (0.2-1.0)
[2025-06-02 01:02] LABS: BASOPHILS % 1.1 % (0.0-2.0); EOSINOPHILS % 5.1 % (0.0-5.0); HEMATOCRIT. 30.7 % (36.0-48.0); HEMOGLOBIN. 9.5 g/dL (12.0-16.0); LYMPHOCYTES % 43.5 % (20.0-50.0); MEAN PLATELET VOLUME 8.0 fl (7.4-10.4); MONOCYTES % 10.3 % (2.0-8.0); NEUTROPHILS % 40.0 % (40.0-76.0); PLATELET 371 x1000/uL (130-400); RED BLOOD CELL COUNT 3.69 mill/uL (4.2-5.4); RED CELL DISTRIBUTION WIDTH 22.9 % (11.6-14.6)
[2025-06-02 01:03] LABS: ADD RBC MORPHOLOGY YES
[2025-06-02 01:14] LABS: CREATININE 0.9 mg/dL (0.6-1.0)
[2025-06-02 01:15] LABS: UREA NITROGEN BLOOD 11 mg/dL (9-23)
[2025-06-02 01:17] LABS: INR 1.0
[2025-06-02 01:27] LABS: SQUAMOUS EPITHELIAL CELL URINE 1+ /lpf (RARE/1+)
[2025-06-02 01:28] LABS: BACTERIA URINE TRACE; CALCIUM OXALATE CRYSTALS URINE 2+ /lpf; RBC URINE NONE SEEN /hpf (0-2); WBC URINE 0-2 /hpf (0-2)
[2025-06-02] MEDS ORDERED: NAPR-1176 MT (01:32)
[2025-06-02] MEDS ORDERED: CYCL10TA21 MT (01:32)
[2025-06-02] MEDS: HYDROCODONE/ACETAMINOPHEN 5/325MG TABLET PO ONE (01:35)
[2025-06-02 02:00] VITALS: BP 115/70; PULSE 88; RESP 17; TEMP 37.1; O2SAT 100
[2025-06-02 05:11] LABS: PLATELET ESTIMATE NORMAL
== END 2025-06-02 02:05 | disposition home or self-care (01) ==
LOC: ER 06-02 00:19
DX: S80.01XA Contusion of right knee, initial encounter (principal); X58.XXXA Exposure to other specified factors, initial encounter; Y93.89 Activity, other specified; Y92.89 Other specified places as the place of occurrence of the external cause; Y99.8 Other external cause status
CPT/HCPCS: 73560; 99285; 93971; 80048; 81003; 81025; 85025; 85610; 85651; 85730; 36415; 96372; J1885; A4606

== ENCOUNTER 2025-06-09 09:18 | Inpatient (IN) | payer MEDICAID ==
[~2025-06-09] VITALS: Ht 160 cm; Wt 85.4 kg
[~2025-06-09 09:18] MED LIST changes: +CYCL10TA21 MT; +NAPR-1176 MT
[2025-06-09 09:25] VITALS: O2SAT 99
[2025-06-09] MEDS: MORPHINE SULFATE 4 MG/ML INJ (FOR IV/IM USE) IV ONE ×3 (09:52→13:33)
[2025-06-09 10:00] LABS: BASOPHILS % 0.7 % (0.0-2.0); EOSINOPHILS % 2.1 % (0.0-5.0); HEMATOCRIT. 30.9 % (36.0-48.0); HEMOGLOBIN. 9.7 g/dL (12.0-16.0); LYMPHOCYTES % 15.2 % (20.0-50.0); MEAN PLATELET VOLUME 8.2 fl (7.4-10.4); MONOCYTES % 8.4 % (2.0-8.0); NEUTROPHILS % 73.6 % (40.0-76.0); PLATELET 370 x1000/uL (130-400); RED BLOOD CELL COUNT 3.66 mill/uL (4.2-5.4); RED CELL DISTRIBUTION WIDTH 22.2 % (11.6-14.6)
[2025-06-09 10:10] LABS: ADD RBC MORPHOLOGY YES
[2025-06-09 10:17] LABS: CREATININE 0.8 mg/dL (0.6-1.0); UREA NITROGEN BLOOD 9 mg/dL (9-23)
[2025-06-09 10:19] LABS: ASPARTATE AMINOTRANSFERASE 17 IU/L (<34); BILIRUBIN DIRECT 0.1 mg/dL (<=3.0); BILIRUBIN TOTAL 0.5 mg/dL (0.1-1.0); PROTEIN TOTAL 6.9 g/dL (6.0-8.3)
[2025-06-09 10:33] LABS: HCG SCREEN NEGATIVE
[2025-06-09] MEDS: KETOROLAC 30MG/ML VIAL IV ONE (12:30)
[2025-06-09] MEDS ORDERED: ACETAMINOPHEN 325MG TABLET PO PRN (15:00)
[2025-06-09 15:45] LABS: PLATELET ESTIMATE NORMAL
[2025-06-09 16:00] VITALS: BP 99/70; PULSE 76; RESP 18; TEMP 36.3; O2SAT 99
[2025-06-09] MEDS ORDERED: FERR325T6 MT (16:20)
[2025-06-09] MEDS: SODIUM CHLORIDE 0.9% 500 ML IV ONE (16:40)
[2025-06-09 16:41] VITALS: BP 98/58; PULSE 90; RESP 18; TEMP 36.8072
[2025-06-09] MEDS: KETOROLAC 30MG/ML VIAL IV PRN (19:07)
[2025-06-09 20:22] LABS: COLOR URINE YELLOW (YELLOW); GLUCOSE URINE NEGATIVE (NEGATIVE); KETONES URINE NEGATIVE (NEGATIVE); PH URINE 5.5 (4.5-8.0); PROTEIN URINE 1+ (NEGATIVE); SPECIFIC GRAVITY URINE 1.026 (1.005-1.030)
[2025-06-09 20:23] LABS: LEUKOCYTE ESTERASE URINE 1+ (NEGATIVE); NITRITE URINE NEGATIVE (NEGATIVE); OCCULT BLOOD URINE 3+ (NEGATIVE); UROBILINOGEN URINE 0.2 E.U./dL (0.2-1.0)
[2025-06-09] MEDS ORDERED: NALOXONE HCL 0.4MG/ML VIAL IV PRN (20:30)
[2025-06-09 20:34] LABS: CLARITY URINE HAZY (CLEAR)
[2025-06-09 20:35] LABS: RBC URINE 25-50 /hpf (0-2); WBC URINE 25-50 /hpf (0-2)
[2025-06-09 20:36] LABS: BACTERIA URINE TRACE; MUCUS URINE 1+ /lpf (< = 2+); SQUAMOUS EPITHELIAL CELL URINE 2+ /lpf (RARE/1+)
[2025-06-09] MEDS: HYDROCODONE/ACETAMINOPHEN 10/325MG TABLET PO PRN (21:13)
[2025-06-10] VITALS: BP 105/58; PULSE 81; RESP 16; TEMP 36.8; O2SAT 95
[2025-06-10 04:00] VITALS: BP 94/48; PULSE 83; RESP 18; TEMP 37.1; O2SAT 94
[2025-06-10] MEDS: ONDANSETRON HCL 4MG/2ML INJ IV PRN (04:40)
[2025-06-10] MEDS: SODIUM CHLORIDE 0.9% 1,000 ML IV SCH (04:55)
[2025-06-10 08:00] VITALS: BP 98/55; PULSE 78; RESP 18; TEMP 36.6; O2SAT 98
[2025-06-10 12:00] VITALS: BP 102/55; RESP 16; TEMP 36.1; O2SAT 98
[2025-06-10 16:00] VITALS: BP 105/64; PULSE 91; RESP 16; TEMP 36.6; O2SAT 98
[2025-06-10] MEDS: DOCUSATE SODIUM 250MG CAPSULE PO SCH (16:30)
[2025-06-10] MEDS: FERROUS SULFATE 325MG TABLET PO SCH (17:15)
[2025-06-10 17:45] VITALS: BP 105/64; PULSE 91; RESP 18; TEMP 97.6
== END 2025-06-10 18:05 | disposition home or self-care (01) | DRG 532 ==
LOC: ER 09:18 → 5WST 13:47 → EDBEDREQTM 13:50 → EDBEDREQ 13:50 → EDBEDREQSVC 13:50
PROVIDERS: ADMIT Internal Medicine; ATTEND Internal Medicine
DX: D25.9 Leiomyoma of uterus, unspecified (principal); D64.9 Anemia, unspecified; E66.9 Obesity, unspecified; Z68.33 Body mass index [BMI] 33.0-33.9, adult
CPT/HCPCS: 36415; 74176; 80048; 80076; 81003; 84703; 85014; 85018; 85025; 96374; 96375; 99285; A4606; J1885; J2270; J2405; J7030